=== PATIENT | female | born 1940 | race Caucasian/White ===

== ENCOUNTER 2020-10-26 09:42 | Inpatient (IN) | payer MEDICARE ==
[2020-10-26] MEDS ORDERED: Morphine 4 MG/ML VIAL ONE ×2 (10:33→11:09)
[2020-10-26] MEDS ORDERED: Cefepime 2 GM VIAL ONE (10:34)
[2020-10-26 10:45] LABS: #Monocytes 1.2 10x3/uL (0.0-1.1); #Neutrophils 10.8 10x3/uL (1.5-8.4); %Basophils 0.2 % (0.0-2.0); %Eosinophils 0.2 % (0.0-6.0); %Lymphocytes 13.8 % (18.0-47.0); %Monocytes 8.7 % (0.0-10.0); %Neutrophils 76.4 % (40.0-75.0); Hemoglobin 13.4 g/dL (12.0-15.5); Mean Corpuscular HGB CONC 34.4 g/dL (32.0-36.0); Mean Corpuscular Hemoglobin 30.9 pg (27.0-33.0); Mean Corpuscular Volume 90.1 fl (81.6-98.3); Mean Platelet Volume 9.3 fl (7.4-10.4); Platelet Count 458 10x3/uL (150-450); RBC Distribution Width 13.2 % (11.5-14.5); Red Blood Cell (RBC) Count 4.33 10x6/uL (3.90-5.03); White Blood Cell (WBC) Count 14.1 10x3/uL (3.5-10.5)
[2020-10-26 10:50] LABS: ALT (SGPT) 20 U/L (8-55); AST (SGOT) 23 U/L (5-34); Albumin 3.7 g/dL (3.4-4.8); Alkaline Phosphatase 65 U/L (40-110); Anion Gap 23 mmol/L (10-20); BUN (Urea Nitrogen) 49 mg/dL (9.8-20.1); Bilirubin, Total 1.2 mg/dL (0.2-1.2); Calc. Creatinine Clearance 0 mL/min (70-130); Calcium 9.5 mg/dL (7.8-10.44); Carbon Dioxide 16 mmol/L (23-31); Chloride 96 mmol/L (98-107); Globulin 4.6 g/dL (2.4-3.5); Glucose 138 mg/dL (83-110); Potassium 4.4 mmol/L (3.5-5.1); Protein, Total 8.3 g/dL (5.8-8.1); Sodium 131 mmol/L (136-145)
[2020-10-26 13:24] LABS: Lactic Acid 2.1 mmol/L (0.5-2.2)
[2020-10-26 13:32] LABS: Troponin I 0.029 ng/mL (< 0.028)
[2020-10-26 14:30] VITALS: BMI 64.6
[2020-10-26] MEDS ORDERED: Acetaminophen 325 MG TAB PO PRN (14:30)
[2020-10-26] MEDS ORDERED: Morphine 2 MG/ML VIAL ONE (14:41)
[2020-10-26] MEDS ORDERED: Vancomycin HCl 1 GM in Sodium Chloride 0.9% 250 ML 250 ML IVPB SCH (14:45)
[2020-10-26] MEDS ORDERED: Morphine 4 MG/ML VIAL SLOW IVP PRN (15:21)
[2020-10-26] MEDS ORDERED: Morphine 4 MG/ML VIAL SLOW IVP SCH (15:30)
[2020-10-26] MEDS: Sodium Chloride 0.9% 1,000 ML IV SCH (15:51)
[2020-10-26 16:52] LABS: Troponin I 0.046 ng/mL (< 0.028)
[2020-10-26] MEDS: traMADol HCl 50 MG TAB PO PRN (17:08)
[2020-10-26] MEDS ORDERED: Vancomycin 1.5 GRAM/300 ML BAG 1.5 GM in Premix Bag 1 BAG IVPB SCH (17:15)
[2020-10-26] MEDS: Cefepime 1 GM in Sodium Chloride 0.9% 100 ML IVPB SCH (20:56)
[2020-10-26] MEDS: Nystatin Powder 15 GM BOT TOP SCH (20:57)
[2020-10-26] MEDS: Famotidine 20 MG TAB PO SCH (20:58)
[2020-10-26] MEDS ORDERED: Metoprolol Tartrate 25 MG TAB PO SCH (21:00)
[2020-10-26] MEDS: HYDROcodone/Acetaminophen 10/325 mg Tablet PO PRN (23:01)
[2020-10-26] MEDS: cloNIDine 0.1 MG TAB PO SCH (23:59)
[2020-10-27 04:44] LABS: SARS-CoV-2 PCR by NAA Not Detected (NotDetected)
[2020-10-27] MEDS: Sodium Chloride 0.9% 1,000 ML IV SCH ×2 (05:19→17:10)
[2020-10-27 06:48] LABS: #Monocytes 1.2 10x3/uL (0.0-1.1); %Basophils 0.2 % (0.0-2.0); %Eosinophils 0.2 % (0.0-6.0); %Lymphocytes 11.9 % (18.0-47.0); %Monocytes 9.6 % (0.0-10.0); %Neutrophils 77.7 % (40.0-75.0); Hemoglobin 11.8 g/dL (12.0-15.5); Mean Corpuscular HGB CONC 34.1 g/dL (32.0-36.0); Mean Corpuscular Hemoglobin 31.1 pg (27.0-33.0); Mean Corpuscular Volume 91.1 fl (81.6-98.3); Platelet Count 363 10x3/uL (150-450); RBC Distribution Width 13.1 % (11.5-14.5); White Blood Cell (WBC) Count 12.9 10x3/uL (3.5-10.5)
[2020-10-27 07:00] LABS: Anion Gap 17 mmol/L (10-20); BUN (Urea Nitrogen) 26 mg/dL (9.8-20.1); Calc. Creatinine Clearance 82 mL/min (70-130); Carbon Dioxide 21 mmol/L (23-31); Chloride 100 mmol/L (98-107); Glucose 117 mg/dL (83-110); Potassium 3.8 mmol/L (3.5-5.1); Sodium 134 mmol/L (136-145)
[2020-10-27] MEDS: cloNIDine 0.1 MG TAB PO SCH ×2 (09:01→22:03)
[2020-10-27] MEDS: Lisinopril 20 MG TAB PO SCH (09:01)
[2020-10-27] MEDS: Aspirin 81 mg Enteric Coated Tablet PO SCH (09:02)
[2020-10-27] MEDS: Hydrochlorothiazide 25 MG TAB PO SCH (09:02)
[2020-10-27] MEDS: Digoxin 0.125 MG TAB PO SCH (09:02)
[2020-10-27] MEDS: Nystatin Powder 15 GM BOT TOP SCH ×2 (09:03→22:03)
[2020-10-27] MEDS: Metoprolol Tartrate 50 MG TAB PO SCH ×2 (09:34→22:02)
[2020-10-27] MEDS: HYDROcodone/Acetaminophen 10/325 mg Tablet PO PRN (09:34)
[2020-10-27 11:08] LABS: Hemoglobin A1c 5.9 % (4.0-6.0)
[2020-10-27 16:44] LABS: Vancomycin, Random 5.4 ug/mL (See Comment)
[2020-10-27] MEDS: Vancomycin 1.5 GRAM/300 ML BAG 1.5 GM in Premix Bag 1 BAG IVPB SCH (22:01)
[2020-10-27] MEDS: Cefepime 1 GM in Sodium Chloride 0.9% 100 ML IVPB SCH (22:02)
[2020-10-27] MEDS: Famotidine 20 MG TAB PO SCH (22:02)
[2020-10-28] MEDS: Sodium Chloride 0.9% 1,000 ML IV SCH ×2 (06:50→18:30)
[2020-10-28] MEDS: Nystatin Powder 15 GM BOT TOP SCH ×2 (09:05→21:24)
[2020-10-28] MEDS: Digoxin 0.125 MG TAB PO SCH (09:05)
[2020-10-28] MEDS: Hydrochlorothiazide 25 MG TAB PO SCH (09:08)
[2020-10-28] MEDS: Lisinopril 20 MG TAB PO SCH (09:08)
[2020-10-28] MEDS: Aspirin 81 mg Enteric Coated Tablet PO SCH (09:09)
[2020-10-28] MEDS: Metoprolol Tartrate 50 MG TAB PO SCH ×2 (09:09→21:23)
[2020-10-28] MEDS: cloNIDine 0.1 MG TAB PO SCH ×2 (09:09→21:22)
[2020-10-28] MEDS ORDERED: Fentanyl 100 MCG/2 ML VIAL ONE ×2 (10:17→11:12)
[2020-10-28] MEDS ORDERED: Ondansetron PF 4 MG/2 ML Vial ONE (10:17)
[2020-10-28] MEDS ORDERED: PROPOFOL 20 ML ONE (10:17)
[2020-10-28] MEDS ORDERED: Midazolam HCl 2 mg/2 ml Vial ONE (10:17)
[2020-10-28] MEDS ORDERED: Lidocaine 1% PF 5 ML VIAL ONE (10:18)
[2020-10-28] MEDS: HYDROcodone/Acetaminophen 10/325 mg Tablet PO PRN (12:01)
[2020-10-28] MEDS: traMADol HCl 50 MG TAB PO PRN (18:40)
[2020-10-28] MEDS: Cefepime 1 GM in Sodium Chloride 0.9% 100 ML IVPB SCH (20:32)
[2020-10-28] MEDS: Famotidine 20 MG TAB PO SCH (21:23)
[2020-10-28] MEDS: Vancomycin 1.5 GRAM/300 ML BAG 1.5 GM in Premix Bag 1 BAG IVPB SCH (21:34)
[2020-10-29] MEDS: HYDROcodone/Acetaminophen 10/325 mg Tablet PO PRN ×3 (06:48→21:38)
[2020-10-29] MEDS: Lisinopril 20 MG TAB PO SCH (08:59)
[2020-10-29] MEDS: Metoprolol Tartrate 50 MG TAB PO SCH ×2 (09:00→21:31)
[2020-10-29] MEDS: Hydrochlorothiazide 25 MG TAB PO SCH (09:00)
[2020-10-29] MEDS: Digoxin 0.125 MG TAB PO SCH (09:00)
[2020-10-29] MEDS: Aspirin 81 mg Enteric Coated Tablet PO SCH (09:00)
[2020-10-29] MEDS: cloNIDine 0.1 MG TAB PO SCH ×2 (09:01→21:31)
[2020-10-29] MEDS: traMADol HCl 50 MG TAB PO PRN ×2 (09:34→15:23)
[2020-10-29] MEDS: Apixaban 5 MG TAB PO SCH ×2 (09:36→21:31)
[2020-10-29] MEDS: Nystatin Powder 15 GM BOT TOP SCH (09:37)
[2020-10-29] MEDS: Sodium Chloride 0.9% 1,000 ML IV SCH (10:52)
[2020-10-29 20:17] LABS: Vancomycin, Trough 13.9 ug/mL
[2020-10-29] MEDS: Vancomycin 1.5 GRAM/300 ML BAG 1.5 GM in Premix Bag 1 BAG IVPB SCH (21:26)
[2020-10-29] MEDS: Famotidine 20 MG TAB PO SCH (21:30)
[2020-10-29] MEDS: Cefepime 1 GM in Sodium Chloride 0.9% 100 ML IVPB SCH (23:27)
[2020-10-30] MEDS: Nystatin Powder 15 GM BOT TOP SCH ×2 (00:05→09:40)
[2020-10-30 05:58] LABS: #Eosinphils 0.2 10x3/uL (0.0-0.5); #Monocytes 1.1 10x3/uL (0.0-1.1); #Neutrophils 8.3 10x3/uL (1.5-8.4); %Basophils 0.3 % (0.0-2.0); %Eosinophils 1.3 % (0.0-6.0); %Lymphocytes 16.2 % (18.0-47.0); %Monocytes 9.2 % (0.0-10.0); %Neutrophils 72.5 % (40.0-75.0); Mean Corpuscular HGB CONC 33.7 g/dL (32.0-36.0); Mean Corpuscular Hemoglobin 30.4 pg (27.0-33.0); Mean Corpuscular Volume 90.1 fl (81.6-98.3); Platelet Count 324 10x3/uL (150-450); RBC Distribution Width 13.2 % (11.5-14.5); Red Blood Cell (RBC) Count 3.95 10x6/uL (3.90-5.03); White Blood Cell (WBC) Count 11.4 10x3/uL (3.5-10.5)
[2020-10-30 06:23] LABS: Anion Gap 15 mmol/L (10-20); BUN (Urea Nitrogen) 11 mg/dL (9.8-20.1); Calc. Creatinine Clearance 133 mL/min (70-130); Calcium 8.5 mg/dL (7.8-10.44); Carbon Dioxide 23 mmol/L (23-31); Chloride 100 mmol/L (98-107); Glucose 101 mg/dL (83-110); Potassium 3.7 mmol/L (3.5-5.1); Sodium 134 mmol/L (136-145)
[2020-10-30] MEDS: Apixaban 5 MG TAB PO SCH ×2 (08:26→20:24)
[2020-10-30] MEDS: Hydrochlorothiazide 25 MG TAB PO SCH (08:26)
[2020-10-30] MEDS: Digoxin 0.125 MG TAB PO SCH (08:26)
[2020-10-30] MEDS: HYDROcodone/Acetaminophen 10/325 mg Tablet PO PRN ×3 (08:26→20:22)
[2020-10-30] MEDS: Lisinopril 20 MG TAB PO SCH (08:27)
[2020-10-30] MEDS: cloNIDine 0.1 MG TAB PO SCH ×2 (08:27→20:23)
[2020-10-30] MEDS: Aspirin 81 mg Enteric Coated Tablet PO SCH (08:27)
[2020-10-30] MEDS: Metoprolol Tartrate 50 MG TAB PO SCH ×2 (08:28→20:22)
[2020-10-30] MEDS: Sodium Chloride 0.9% 1,000 ML IV SCH ×2 (09:37→11:20)
[2020-10-30] MEDS: traMADol HCl 50 MG TAB PO PRN (12:22)
[2020-10-30] MEDS: Famotidine 20 MG TAB PO SCH (20:22)
[2020-10-30] MEDS: Cefepime 1 GM in Sodium Chloride 0.9% 100 ML IVPB SCH (20:24)
[2020-10-30 20:29] LABS: Vancomycin, Trough 15.6 ug/mL
[2020-10-30] MEDS: Vancomycin 1.5 GRAM/300 ML BAG 1.5 GM in Premix Bag 1 BAG IVPB SCH (21:25)
[2020-10-31] MEDS: Sodium Chloride 0.9% 1,000 ML IV SCH ×2 (02:14→18:00)
[2020-10-31] MEDS: Nystatin Powder 15 GM BOT TOP SCH ×3 (05:13→21:23)
[2020-10-31] MEDS: HYDROcodone/Acetaminophen 10/325 mg Tablet PO PRN (10:15)
[2020-10-31] MEDS: Hydrochlorothiazide 25 MG TAB PO SCH (10:29)
[2020-10-31] MEDS: Digoxin 0.125 MG TAB PO SCH (10:29)
[2020-10-31] MEDS: Metoprolol Tartrate 50 MG TAB PO SCH ×2 (10:30→20:33)
[2020-10-31] MEDS: cloNIDine 0.1 MG TAB PO SCH ×2 (10:30→20:29)
[2020-10-31] MEDS: Aspirin 81 mg Enteric Coated Tablet PO SCH (10:31)
[2020-10-31] MEDS: Lisinopril 20 MG TAB PO SCH (10:31)
[2020-10-31] MEDS: Apixaban 5 MG TAB PO SCH ×2 (10:32→20:29)
[2020-10-31] MEDS: Cefepime 1 GM in Sodium Chloride 0.9% 100 ML IVPB SCH (20:29)
[2020-10-31] MEDS: Famotidine 20 MG TAB PO SCH (20:29)
[2020-10-31] MEDS: Vancomycin 1.5 GRAM/300 ML BAG 1.5 GM in Premix Bag 1 BAG IVPB SCH (21:23)
[2020-11-01] MEDS: Sodium Chloride 0.9% 1,000 ML IV SCH ×2 (05:58→20:18)
[2020-11-01 09:47] LABS: Hep C IgG Ab Non-Reactive (NonReactive); Hep C Index 0.05 S/CO (0-0.79)
[2020-11-01] MEDS: Metoprolol Tartrate 50 MG TAB PO SCH ×2 (10:00→20:43)
[2020-11-01] MEDS: Apixaban 5 MG TAB PO SCH ×2 (10:00→20:43)
[2020-11-01] MEDS: cloNIDine 0.1 MG TAB PO SCH ×2 (10:01→20:43)
[2020-11-01] MEDS: Lisinopril 20 MG TAB PO SCH (10:01)
[2020-11-01] MEDS: Digoxin 0.125 MG TAB PO SCH (10:02)
[2020-11-01] MEDS: Aspirin 81 mg Enteric Coated Tablet PO SCH (10:02)
[2020-11-01] MEDS: Nystatin Powder 15 GM BOT TOP SCH ×2 (10:04→20:44)
[2020-11-01] MEDS: Hydrochlorothiazide 25 MG TAB PO SCH (10:04)
[2020-11-01] MEDS: HYDROcodone/Acetaminophen 10/325 mg Tablet PO PRN (16:45)
[2020-11-01] MEDS: cefTRIAXone\\ROCEPHIN 1 GM in Sodium Chloride 0.9% 100 ML IVPB SCH (17:20)
[2020-11-01 20:16] LABS: Vancomycin, Trough 15.2 ug/mL
[2020-11-01] MEDS: Famotidine 20 MG TAB PO SCH (20:43)
[2020-11-01] MEDS: metroNIDAZOLE 500 MG TAB PO SCH (20:44)
[2020-11-02] MEDS: HYDROcodone/Acetaminophen 10/325 mg Tablet PO PRN ×2 (05:35→21:53)
[2020-11-02 06:01] LABS: #Eosinphils 0.2 10x3/uL (0.0-0.5); #Monocytes 0.9 10x3/uL (0.0-1.1); #Neutrophils 6.8 10x3/uL (1.5-8.4); %Basophils 0.2 % (0.0-2.0); %Eosinophils 1.6 % (0.0-6.0); %Lymphocytes 18.4 % (18.0-47.0); %Neutrophils 70.4 % (40.0-75.0); Hemoglobin 11.8 g/dL (12.0-15.5); Mean Corpuscular HGB CONC 33.9 g/dL (32.0-36.0); Mean Corpuscular Hemoglobin 30.7 pg (27.0-33.0); Mean Corpuscular Volume 90.6 fl (81.6-98.3); Mean Platelet Volume 9.1 fl (7.4-10.4); Platelet Count 343 10x3/uL (150-450); RBC Distribution Width 13.2 % (11.5-14.5); Red Blood Cell (RBC) Count 3.84 10x6/uL (3.90-5.03); White Blood Cell (WBC) Count 9.7 10x3/uL (3.5-10.5)
[2020-11-02 06:07] LABS: Anion Gap 15 mmol/L (10-20); BUN (Urea Nitrogen) 8 mg/dL (9.8-20.1); Calc. Creatinine Clearance 134 mL/min (70-130); Calcium 9.1 mg/dL (7.8-10.44); Carbon Dioxide 24 mmol/L (23-31); Chloride 101 mmol/L (98-107); Glucose 120 mg/dL (83-110); Potassium 4.3 mmol/L (3.5-5.1); Sodium 136 mmol/L (136-145)
[2020-11-02] MEDS: Metoprolol Tartrate 50 MG TAB PO SCH ×2 (09:18→20:44)
[2020-11-02] MEDS: Apixaban 5 MG TAB PO SCH ×2 (09:18→20:44)
[2020-11-02] MEDS: metroNIDAZOLE 500 MG TAB PO SCH ×3 (09:19→20:44)
[2020-11-02] MEDS: Hydrochlorothiazide 25 MG TAB PO SCH (09:19)
[2020-11-02] MEDS: Lisinopril 20 MG TAB PO SCH (09:19)
[2020-11-02] MEDS: Digoxin 0.125 MG TAB PO SCH (09:19)
[2020-11-02] MEDS: cloNIDine 0.1 MG TAB PO SCH ×2 (09:19→20:45)
[2020-11-02] MEDS: Aspirin 81 mg Enteric Coated Tablet PO SCH (09:19)
[2020-11-02] MEDS: Nystatin Powder 15 GM BOT TOP SCH ×2 (09:20→20:47)
[2020-11-02] MEDS: Sodium Chloride 0.9% 1,000 ML IV SCH ×2 (09:21→21:53)
[2020-11-02] MEDS: cefTRIAXone\\ROCEPHIN 1 GM in Sodium Chloride 0.9% 100 ML IVPB SCH (17:30)
[2020-11-02] MEDS: Famotidine 20 MG TAB PO SCH (20:44)
[2020-11-03] MEDS: Apixaban 5 MG TAB PO SCH ×2 (09:12→21:15)
[2020-11-03] MEDS: Aspirin 81 mg Enteric Coated Tablet PO SCH (09:12)
[2020-11-03] MEDS: cloNIDine 0.1 MG TAB PO SCH ×2 (09:12→21:16)
[2020-11-03] MEDS: Digoxin 0.125 MG TAB PO SCH (09:12)
[2020-11-03] MEDS: Famotidine 20 MG TAB PO SCH ×2 (09:13→21:16)
[2020-11-03] MEDS: Lisinopril 20 MG TAB PO SCH (09:13)
[2020-11-03] MEDS: Metoprolol Tartrate 50 MG TAB PO SCH ×2 (09:13→21:15)
[2020-11-03] MEDS: metroNIDAZOLE 500 MG TAB PO SCH ×3 (09:13→21:16)
[2020-11-03] MEDS: Nystatin Powder 15 GM BOT TOP SCH ×2 (09:13→21:17)
[2020-11-03] MEDS: Hydrochlorothiazide 25 MG TAB PO SCH (09:13)
[2020-11-03] MEDS: HYDROcodone/Acetaminophen 10/325 mg Tablet PO PRN ×2 (09:23→19:02)
[2020-11-03] MEDS: Sodium Chloride 0.9% 1,000 ML IV SCH (12:35)
[2020-11-03] MEDS: Fentanyl 100 MCG/2 ML VIAL SLOW IVP PRN (13:52)
[2020-11-03] MEDS: cefTRIAXone\\ROCEPHIN 1 GM in Sodium Chloride 0.9% 100 ML IVPB SCH (17:00)
[2020-11-04] MEDS: Sodium Chloride 0.9% 1,000 ML IV SCH ×2 (02:02→15:43)
[2020-11-04 05:42] LABS: #Basophils 0.1 10x3/uL (0.0-0.2); #Eosinphils 0.1 10x3/uL (0.0-0.5); #Monocytes 0.8 10x3/uL (0.0-1.1); #Neutrophils 6.6 10x3/uL (1.5-8.4); %Basophils 0.5 % (0.0-2.0); %Eosinophils 1.5 % (0.0-6.0); %Monocytes 8.4 % (0.0-10.0); %Neutrophils 70.2 % (40.0-75.0); Hemoglobin 11.5 g/dL (12.0-15.5); Mean Corpuscular HGB CONC 32.9 g/dL (32.0-36.0); Mean Corpuscular Hemoglobin 30.3 pg (27.0-33.0); Mean Corpuscular Volume 92.1 fl (81.6-98.3); Mean Platelet Volume 9.3 fl (7.4-10.4); Platelet Count 350 10x3/uL (150-450); RBC Distribution Width 13.8 % (11.5-14.5); White Blood Cell (WBC) Count 9.5 10x3/uL (3.5-10.5)
[2020-11-04 05:51] LABS: Anion Gap 15 mmol/L (10-20); Calc. Creatinine Clearance 142 mL/min (70-130); Calcium 8.7 mg/dL (7.8-10.44); Carbon Dioxide 21 mmol/L (23-31); Chloride 102 mmol/L (98-107); Potassium 3.4 mmol/L (3.5-5.1); Sodium 135 mmol/L (136-145)
[2020-11-04 05:56] LABS: BUN (Urea Nitrogen) 7 mg/dL (9.8-20.1); Glucose 97 mg/dL (83-110)
[2020-11-04] MEDS: HYDROcodone/Acetaminophen 10/325 mg Tablet PO PRN ×3 (06:46→21:25)
[2020-11-04] MEDS ORDERED: Potassium Chloride 20 MEQ TAB PO SCH (07:30)
[2020-11-04] MEDS: cloNIDine 0.1 MG TAB PO SCH ×2 (09:21→21:22)
[2020-11-04] MEDS: Aspirin 81 mg Enteric Coated Tablet PO SCH (09:21)
[2020-11-04] MEDS: Apixaban 5 MG TAB PO SCH (09:21)
[2020-11-04] MEDS: Hydrochlorothiazide 25 MG TAB PO SCH (09:22)
[2020-11-04] MEDS: Famotidine 20 MG TAB PO SCH ×2 (09:22→21:24)
[2020-11-04] MEDS: Nystatin Powder 15 GM BOT TOP SCH ×2 (09:22→21:26)
[2020-11-04] MEDS: metroNIDAZOLE 500 MG TAB PO SCH ×3 (09:22→21:24)
[2020-11-04] MEDS: Metoprolol Tartrate 50 MG TAB PO SCH ×2 (09:22→21:24)
[2020-11-04] MEDS: Digoxin 0.125 MG TAB PO SCH (09:22)
[2020-11-04] MEDS: Lisinopril 20 MG TAB PO SCH (09:22)
[2020-11-04 15:22] LABS: Cytoplasmic (C-ANCA) <1:20 titer (Neg:<1:20); Myeloperoxidase AutoAbs <9.0 U/mL (0.0-9.0); Perinuclear (P-ANCA) <1:20 titer (Neg:<1:20); Proteinase-3 AutoAbs Less than 3.5 U/mL (0.0-3.5)
[2020-11-04] MEDS: cefTRIAXone\\ROCEPHIN 1 GM in Sodium Chloride 0.9% 100 ML IVPB SCH (15:44)
[2020-11-04] MEDS ORDERED: Fentanyl 100 MCG/2 ML VIAL SLOW IVP PRN (20:08)
[2020-11-04] MEDS: Enoxaparin Sodium 80 MG/0.8 ML SYRINGE SC SCH (21:24)
[2020-11-05] MEDS: HYDROcodone/Acetaminophen 10/325 mg Tablet PO PRN (06:59)
[2020-11-05] MEDS: Aspirin 81 mg Enteric Coated Tablet PO SCH (08:30)
[2020-11-05] MEDS: cloNIDine 0.1 MG TAB PO SCH ×2 (08:31→21:08)
[2020-11-05] MEDS: Lisinopril 20 MG TAB PO SCH (08:32)
[2020-11-05] MEDS: Enoxaparin Sodium 80 MG/0.8 ML SYRINGE SC SCH ×2 (08:32→21:09)
[2020-11-05] MEDS: Digoxin 0.125 MG TAB PO SCH (08:32)
[2020-11-05] MEDS: Hydrochlorothiazide 25 MG TAB PO SCH (08:32)
[2020-11-05] MEDS: Famotidine 20 MG TAB PO SCH ×2 (08:32→21:08)
[2020-11-05] MEDS: metroNIDAZOLE 500 MG TAB PO SCH ×3 (08:33→21:09)
[2020-11-05] MEDS: Nystatin Powder 15 GM BOT TOP SCH ×2 (08:33→21:18)
[2020-11-05] MEDS: Metoprolol Tartrate 50 MG TAB PO SCH ×2 (08:33→21:09)
[2020-11-05 11:22] LABS: Anion Gap 14 mmol/L (10-20); BUN (Urea Nitrogen) 8 mg/dL (9.8-20.1); Calc. Creatinine Clearance 128 mL/min (70-130); Calcium 8.7 mg/dL (7.8-10.44); Carbon Dioxide 23 mmol/L (23-31); Chloride 102 mmol/L (98-107); Glucose 123 mg/dL (83-110); Potassium 3.9 mmol/L (3.5-5.1); Sodium 135 mmol/L (136-145)
[2020-11-05] MEDS: Fentanyl 100 MCG/2 ML VIAL SLOW IVP PRN (13:12)
[2020-11-05 13:43] LABS: ANA Symphony (Qualitative) Negative (Negative); ANA Symphony (Quantitative) 0.3 Ratio (< 0.7 Negative)
[2020-11-05] MEDS: cefTRIAXone\\ROCEPHIN 1 GM in Sodium Chloride 0.9% 100 ML IVPB SCH (16:10)
[2020-11-05] MEDS: HYDROcodone/Acetaminophen 5/325 mg Tablet PO PRN ×2 (17:42→23:43)
[2020-11-06] MEDS ORDERED: Potassium Chloride 20 MEQ TAB PO SCH (09:30)
[2020-11-06] MEDS: cloNIDine 0.1 MG TAB PO SCH ×2 (10:12→21:05)
[2020-11-06] MEDS: Famotidine 20 MG TAB PO SCH ×2 (10:12→21:04)
[2020-11-06] MEDS: Aspirin 81 mg Enteric Coated Tablet PO SCH (10:12)
[2020-11-06] MEDS: Metoprolol Tartrate 50 MG TAB PO SCH ×2 (10:13→21:05)
[2020-11-06] MEDS: metroNIDAZOLE 500 MG TAB PO SCH ×3 (10:13→21:05)
[2020-11-06] MEDS: Hydrochlorothiazide 25 MG TAB PO SCH (10:13)
[2020-11-06] MEDS: Enoxaparin Sodium 80 MG/0.8 ML SYRINGE SC SCH ×2 (10:14→21:06)
[2020-11-06] MEDS: Digoxin 0.125 MG TAB PO SCH (10:14)
[2020-11-06] MEDS: Nystatin Powder 15 GM BOT TOP SCH ×2 (10:18→21:06)
[2020-11-06] MEDS: Lisinopril 20 MG TAB PO SCH ×2 (10:41→21:05)
[2020-11-06] MEDS: cefTRIAXone\\ROCEPHIN 1 GM in Sodium Chloride 0.9% 100 ML IVPB SCH (15:35)
[2020-11-06] MEDS: HYDROcodone/Acetaminophen 5/325 mg Tablet PO PRN (21:41)
[2020-11-07] MEDS: Famotidine 20 MG TAB PO SCH ×2 (05:26→21:42)
[2020-11-07] MEDS: Digoxin 0.125 MG TAB PO SCH (05:26)
[2020-11-07] MEDS: metroNIDAZOLE 500 MG TAB PO SCH ×3 (05:27→21:43)
[2020-11-07] MEDS: Aspirin 81 mg Enteric Coated Tablet PO SCH (05:27)
[2020-11-07] MEDS: cloNIDine 0.1 MG TAB PO SCH ×2 (05:27→21:42)
[2020-11-07] MEDS: Metoprolol Tartrate 50 MG TAB PO SCH ×2 (05:28→21:43)
[2020-11-07] MEDS: Hydrochlorothiazide 25 MG TAB PO SCH (05:34)
[2020-11-07] MEDS: Enoxaparin Sodium 80 MG/0.8 ML SYRINGE SC SCH (05:34)
[2020-11-07 06:27] LABS: Anion Gap 16 mmol/L (10-20); BUN (Urea Nitrogen) 7 mg/dL (9.8-20.1); Calc. Creatinine Clearance 138 mL/min (70-130); Calcium 8.8 mg/dL (7.8-10.44); Carbon Dioxide 24 mmol/L (23-31); Chloride 98 mmol/L (98-107); Glucose 102 mg/dL (83-110); Potassium 3.6 mmol/L (3.5-5.1); Sodium 134 mmol/L (136-145)
[2020-11-07] MEDS: Lisinopril 20 MG TAB PO SCH ×2 (08:49→21:43)
[2020-11-07] MEDS: Nystatin Powder 15 GM BOT TOP SCH ×2 (08:58→21:45)
[2020-11-07] MEDS ORDERED: Heparin 10,000 UNITS/ 10 ML VIAL ONE (12:42)
[2020-11-07] MEDS ORDERED: Adenosine 6 MG/2 ML VIAL ONE (12:42)
[2020-11-07] MEDS ORDERED: Nitroglycerin 50 MG/250 ML BOT 0 ML ONE (12:42)
[2020-11-07] MEDS ORDERED: Midazolam HCl 2 mg/2 ml Vial ONE ×3 (12:44→15:47)
[2020-11-07] MEDS ORDERED: Lidocaine 1% (PF) 30 ML VIAL ONE (12:44)
[2020-11-07] MEDS ORDERED: Fentanyl 100 MCG/2 ML VIAL ONE ×3 (12:44→15:42)
[2020-11-07] MEDS ORDERED: Lidocaine 1% PF 5 ML VIAL ONE (12:47)
[2020-11-07] MEDS ORDERED: Metoprolol Tartrate 5 MG/5 ML VIAL ONE (14:18)
[2020-11-07] MEDS ORDERED: Sodium Chloride 0.9% 1,000 ML IV SCH (16:00)
[2020-11-07] MEDS ORDERED: Clopidogrel Bisulfate 300 MG TAB ONE (16:02)
[2020-11-07] MEDS: cefTRIAXone\\ROCEPHIN 1 GM in Sodium Chloride 0.9% 100 ML IVPB SCH (17:59)
[2020-11-08 05:23] LABS: #Eosinphils 0.1 10x3/uL (0.0-0.5); #Neutrophils 7.2 10x3/uL (1.5-8.4); %Basophils 0.4 % (0.0-2.0); %Eosinophils 0.5 % (0.0-6.0); %Lymphocytes 18.9 % (18.0-47.0); %Monocytes 9.4 % (0.0-10.0); %Neutrophils 70.3 % (40.0-75.0); Hemoglobin 11.5 g/dL (12.0-15.5); Mean Corpuscular HGB CONC 33.3 g/dL (32.0-36.0); Mean Corpuscular Hemoglobin 30.2 pg (27.0-33.0); Mean Corpuscular Volume 90.6 fl (81.6-98.3); Mean Platelet Volume 9.1 fl (7.4-10.4); Platelet Count 410 10x3/uL (150-450); RBC Distribution Width 14.8 % (11.5-14.5); Red Blood Cell (RBC) Count 3.81 10x6/uL (3.90-5.03); White Blood Cell (WBC) Count 10.2 10x3/uL (3.5-10.5)
[2020-11-08 05:32] LABS: ALT (SGPT) 10 U/L (8-55); AST (SGOT) 14 U/L (5-34); Albumin 2.7 g/dL (3.4-4.8); Alkaline Phosphatase 58 U/L (40-110); Anion Gap 16 mmol/L (10-20); BUN (Urea Nitrogen) 9 mg/dL (9.8-20.1); Bilirubin, Total 0.7 mg/dL (0.2-1.2); Calc. Creatinine Clearance 144 mL/min (70-130); Calcium 8.6 mg/dL (7.8-10.44); Carbon Dioxide 23 mmol/L (23-31); Chloride 100 mmol/L (98-107); Globulin 4.1 g/dL (2.4-3.5); Glucose 97 mg/dL (83-110); Potassium 3.7 mmol/L (3.5-5.1); Protein, Total 6.8 g/dL (5.8-8.1); Sodium 135 mmol/L (136-145)
[2020-11-08] MEDS: HYDROcodone/Acetaminophen 5/325 mg Tablet PO PRN ×3 (05:35→16:40)
[2020-11-08] MEDS: Digoxin 0.125 MG TAB PO SCH (09:17)
[2020-11-08] MEDS: cloNIDine 0.1 MG TAB PO SCH ×2 (09:18→21:03)
[2020-11-08] MEDS: Lisinopril 20 MG TAB PO SCH ×2 (09:18→21:04)
[2020-11-08] MEDS: Metoprolol Tartrate 50 MG TAB PO SCH ×2 (09:19→21:02)
[2020-11-08] MEDS: Rivaroxaban 10 MG TAB PO SCH ×2 (09:20→23:07)
[2020-11-08] MEDS: Clopidogrel Bisulfate 75 MG TAB PO SCH (09:20)
[2020-11-08] MEDS: metroNIDAZOLE 500 MG TAB PO SCH ×3 (09:20→21:03)
[2020-11-08] MEDS: Famotidine 20 MG TAB PO SCH ×2 (09:20→21:02)
[2020-11-08] MEDS: Hydrochlorothiazide 25 MG TAB PO SCH (09:20)
[2020-11-08] MEDS: Nystatin Powder 15 GM BOT TOP SCH ×2 (09:21→21:11)
[2020-11-08] MEDS: cefTRIAXone\\ROCEPHIN 1 GM in Sodium Chloride 0.9% 100 ML IVPB SCH (16:55)
[2020-11-09] MEDS: Lisinopril 20 MG TAB PO SCH ×2 (10:43→20:37)
[2020-11-09] MEDS: cloNIDine 0.1 MG TAB PO SCH ×2 (10:43→20:36)
[2020-11-09] MEDS: Digoxin 0.125 MG TAB PO SCH (10:44)
[2020-11-09] MEDS: Metoprolol Tartrate 50 MG TAB PO SCH ×2 (10:44→20:37)
[2020-11-09] MEDS: Nystatin Powder 15 GM BOT TOP SCH ×2 (10:45→21:35)
[2020-11-09] MEDS: Rivaroxaban 10 MG TAB PO SCH ×2 (10:45→21:35)
[2020-11-09] MEDS: metroNIDAZOLE 500 MG TAB PO SCH ×3 (10:45→20:38)
[2020-11-09] MEDS: Famotidine 20 MG TAB PO SCH ×2 (10:45→20:38)
[2020-11-09] MEDS: Hydrochlorothiazide 25 MG TAB PO SCH (10:45)
[2020-11-09] MEDS: Clopidogrel Bisulfate 75 MG TAB PO SCH (10:45)
[2020-11-09] MEDS: HYDROcodone/Acetaminophen 5/325 mg Tablet PO PRN ×3 (12:55→21:36)
[2020-11-09] MEDS: cefTRIAXone\\ROCEPHIN 1 GM in Sodium Chloride 0.9% 100 ML IVPB SCH (14:58)
[2020-11-10 06:53] LABS: #Eosinphils 0.1 10x3/uL (0.0-0.5); #Monocytes 0.8 10x3/uL (0.0-1.1); #Neutrophils 5.3 10x3/uL (1.5-8.4); %Basophils 0.5 % (0.0-2.0); %Eosinophils 1.2 % (0.0-6.0); %Lymphocytes 22.9 % (18.0-47.0); %Monocytes 9.6 % (0.0-10.0); %Neutrophils 65.3 % (40.0-75.0); Hemoglobin 11.3 g/dL (12.0-15.5); Mean Corpuscular HGB CONC 32.9 g/dL (32.0-36.0); Mean Corpuscular Hemoglobin 30.7 pg (27.0-33.0); Mean Corpuscular Volume 93.2 fl (81.6-98.3); Mean Platelet Volume 9.2 fl (7.4-10.4); Platelet Count 473 10x3/uL (150-450); RBC Distribution Width 15.4 % (11.5-14.5); Red Blood Cell (RBC) Count 3.68 10x6/uL (3.90-5.03); White Blood Cell (WBC) Count 8.2 10x3/uL (3.5-10.5)
[2020-11-10 07:01] LABS: Anion Gap 12 mmol/L (10-20); BUN (Urea Nitrogen) 8 mg/dL (9.8-20.1); Calc. Creatinine Clearance 138 mL/min (70-130); Carbon Dioxide 28 mmol/L (23-31); Chloride 100 mmol/L (98-107); Glucose 104 mg/dL (83-110); Sodium 136 mmol/L (136-145)
[2020-11-10] MEDS: Rivaroxaban 10 MG TAB PO SCH ×3 (09:58→22:16)
[2020-11-10] MEDS: metroNIDAZOLE 500 MG TAB PO SCH ×3 (09:58→21:33)
[2020-11-10] MEDS: Famotidine 20 MG TAB PO SCH ×2 (10:01→21:32)
[2020-11-10] MEDS: Metoprolol Tartrate 50 MG TAB PO SCH ×2 (10:02→21:33)
[2020-11-10] MEDS: cloNIDine 0.1 MG TAB PO SCH ×2 (10:03→21:32)
[2020-11-10] MEDS: Clopidogrel Bisulfate 75 MG TAB PO SCH (10:04)
[2020-11-10] MEDS: Lisinopril 20 MG TAB PO SCH ×2 (10:04→21:32)
[2020-11-10] MEDS: Nystatin Powder 15 GM BOT TOP SCH ×2 (10:04→22:00)
[2020-11-10] MEDS: Hydrochlorothiazide 25 MG TAB PO SCH (10:04)
[2020-11-10] MEDS: Digoxin 0.125 MG TAB PO SCH (10:12)
[2020-11-10] MEDS: HYDROcodone/Acetaminophen 5/325 mg Tablet PO PRN ×2 (14:00→18:00)
[2020-11-10] MEDS: cefTRIAXone\\ROCEPHIN 1 GM in Sodium Chloride 0.9% 100 ML IVPB SCH (18:00)
[2020-11-11 06:41] LABS: #Eosinphils 0.1 10x3/uL (0.0-0.5); #Monocytes 0.8 10x3/uL (0.0-1.1); #Neutrophils 5.3 10x3/uL (1.5-8.4); %Basophils 0.5 % (0.0-2.0); %Monocytes 9.2 % (0.0-10.0); %Neutrophils 64.8 % (40.0-75.0); Hemoglobin 11.6 g/dL (12.0-15.5); Mean Corpuscular Hemoglobin 30.6 pg (27.0-33.0); Mean Corpuscular Volume 92.6 fl (81.6-98.3); Mean Platelet Volume 8.9 fl (7.4-10.4); Platelet Count 469 10x3/uL (150-450); RBC Distribution Width 16.3 % (11.5-14.5); Red Blood Cell (RBC) Count 3.79 10x6/uL (3.90-5.03); White Blood Cell (WBC) Count 8.2 10x3/uL (3.5-10.5)
[2020-11-11 06:54] LABS: Anion Gap 12 mmol/L (10-20); BUN (Urea Nitrogen) 7 mg/dL (9.8-20.1); Calc. Creatinine Clearance 130 mL/min (70-130); Calcium 8.9 mg/dL (7.8-10.44); Carbon Dioxide 28 mmol/L (23-31); Chloride 99 mmol/L (98-107); Glucose 105 mg/dL (83-110); Magnesium 1.8 mg/dL (1.6-2.6); Potassium 3.7 mmol/L (3.5-5.1); Sodium 135 mmol/L (136-145)
[2020-11-11] MEDS: Lisinopril 20 MG TAB PO SCH (08:50)
[2020-11-11] MEDS: Famotidine 20 MG TAB PO SCH (08:51)
[2020-11-11] MEDS: Metoprolol Tartrate 50 MG TAB PO SCH (08:51)
[2020-11-11] MEDS: cloNIDine 0.1 MG TAB PO SCH (08:51)
[2020-11-11] MEDS: Rivaroxaban 10 MG TAB PO SCH ×2 (08:51→18:30)
[2020-11-11] MEDS: Hydrochlorothiazide 25 MG TAB PO SCH (08:51)
[2020-11-11] MEDS: metroNIDAZOLE 500 MG TAB PO SCH (08:52)
[2020-11-11] MEDS: Clopidogrel Bisulfate 75 MG TAB PO SCH (08:53)
[2020-11-11] MEDS: Digoxin 0.125 MG TAB PO SCH (08:53)
[2020-11-11] MEDS: Nystatin Powder 15 GM BOT TOP SCH (08:53)
[2020-11-11 17:13] VITALS: BP 115/69; TEMP 98.4
[2020-11-11] MEDS ORDERED: Metoprolol Tartrate 25 MG TAB PO SCH (21:00)
== END 2020-11-11 18:00 | disposition home health service (06) | DRG 253 ==
LOC: CSHERS 09:42 → CSHTELE 12:16
PROVIDERS: ADMIT Internal Medicine; ATTEND Hospitalist
PROC: 0JBN0ZZ Excision of Right Lower Leg Subcutaneous Tissue and Fascia, Open Approach (ICD-10-PCS; principal; 2020-10-28)
PROC: 047M34Z Dilation of Right Popliteal Artery with Drug-eluting Intraluminal Device, Percutaneous Approach (ICD-10-PCS; 2020-11-08)
PROC: 047P34Z Dilation of Right Anterior Tibial Artery with Drug-eluting Intraluminal Device, Percutaneous Approach (ICD-10-PCS; 2020-11-08)
PROC: 047T34Z Dilation of Right Peroneal Artery with Drug-eluting Intraluminal Device, Percutaneous Approach (ICD-10-PCS; 2020-11-08)
PROC: B40D1ZZ Plain Radiography of Aorta and Bilateral Lower Extremity Arteries using Low Osmolar Contrast (ICD-10-PCS; 2020-11-08)
DX: I70.238 Atherosclerosis of native arteries of right leg with ulceration of other part of lower leg (principal); E87.2 Acidosis; N17.9 Acute kidney failure, unspecified; Z68.44 Body mass index [BMI] 60.0-69.9, adult; I96 Gangrene, not elsewhere classified; Z20.822 Contact with and (suspected) exposure to COVID-19; E66.01 Morbid (severe) obesity due to excess calories; I48.0 Paroxysmal atrial fibrillation; R73.03 Prediabetes; E78.5 Hyperlipidemia, unspecified; E88.81 Metabolic syndrome and other insulin resistance; I49.5 Sick sinus syndrome; L97.811 Non-pressure chronic ulcer of other part of right lower leg limited to breakdown of skin; I10 Essential (primary) hypertension; Z66 Do not resuscitate; Z82.49 Family history of ischemic heart disease and other diseases of the circulatory system; Z80.0 Family history of malignant neoplasm of digestive organs; Z79.01 Long term (current) use of anticoagulants; Z79.82 Long term (current) use of aspirin; Z79.891 Long term (current) use of opiate analgesic; Z79.899 Other long term (current) drug therapy
CPT/HCPCS: 36140; 36247; 36415; 36416; 37226; 37230; 37233; 75625; 75716; 80048; 80053; 80202; 82553; 82565; 82595; 83036; 83520; 83605; 83735; 83880; 84484; 84520; 85025; 85652; 86038; 86140; 86225; 86256; 86803; 87040; 87070; 87076; 87077; 87186; 87205; 87635; 93005; 93010; 93306; 93923; 96365; 96367; 96375; 96376; 99152; 99153; C1725; C1760; C1874; C1876; C1894; J0153; J0692; J0696; J1644; J1650; J2001; J2250; J2270; J2405; J2704; J3010; J3370; J3490; J7050; U0003; U0005